=== PATIENT | male | born 1965 | race Asian ===

== ENCOUNTER 2016-12-12 17:09 | Emergency (ER) | payer MEDICAID, OTHER ==
[2016-12-12 18:02] LABS: ABSOLUTE NEUTROPHIL COUNT 4.9 K/mm3 (1.8-7.7); BASO # 0.1 K/mm3 (0.0-0.2); BASO % 0.7 % (0.2-1.0); EOS % 0.4 % (0.9-2.9); HEMATOCRIT 40.5 % (32.0-52.0); HEMOGLOBIN 13.5 gm/l (14.0-18.0); IMM NEUT # 0.4 K/mm3 (0-0.2); IMM NEUT% 5.3 % (0-1); LYMPH # 1.2 (1.0-4.8); MEAN CELL VOLUME 93.8 fl (80.0-94.0); MEAN CORPUSCULAR HEMOGLOBIN 31.3 pg (27.0-31.0); MEAN CORPUSCULAR HGB CONC 33.3 g/dl (33.0-37.0); MONO # 0.9 (0.0-0.8); MONO % 11.5 % (4-12); NEUT % 66.1 % (43-75); PLATELET COUNT 259 K/mm3 (130-400); RED CELL DISTRIBUTION WIDTH 13.5 % (11.5-14.5)
[2016-12-12 18:17] LABS: CALCIUM 9.2 mg/dL (8.6-10.3)
[2016-12-12 19:07] LABS: BAND 2 % (0-10); BASOPHIL 0 % (0-1); EOSINOPHIL 1 % (1-3); LYMPHOCYTE 9 % (15-45); MONOCYTE 8 % (4-12); NEUTROPHILS 80 % (43-75); PLATELET ESTIMATE NORMAL (NORMAL); TOTAL CELLS COUNTED 100
== END 2016-12-12 18:43 | disposition home or self-care (01) ==
LOC: ED 17:09
DX: I10 Essential (primary) hypertension (principal); I25.2 Old myocardial infarction; Z87.891 Personal history of nicotine dependence; Z85.841 Personal history of malignant neoplasm of brain